=== PATIENT | male | born 1995 | race American Indian/Alaskan Native ===

== ENCOUNTER 2017-07-23 02:17 | Emergency (ER) | payer SELFPAY ==
[2017-07-23] MEDS ORDERED: MOTRIN PO ONE (04:58)
[2017-07-23] MEDS ORDERED: PROVENTIL IH ONE ×2 (04:58→04:59)
[2017-07-23] MEDS ORDERED: MOTRIN ONE (04:59)
--- NOTE | 2017-07-23 05:02 | Emergency Department Report ---
ED ENT HPI - General Chief complaint: Sore Throat Stated complaint: SORE THROAT Time Seen by Provider: 07/23/17 04:23 Source: patient Mode of arrival: Ambulatory Limitations: No Limitations - History of Present Illness Initial comments: 21-year-old male past medical history presents with complaint of nearly 1 week of sore throat worsening with associated cough nonproductive. Positive body aches. Patient speaking in full sentences does not appear toxic awake alert and oriented 3. No trismus no chilling on clinical exam. States he is here with family member with similar symptoms and also states that he may have been exposed to strep throat MD complaint: sore throat Onset/Timin -: days(s) Location: throat Severity: moderate Severity scale (0 -10): 5 Quality: aching Consistency: intermittent Improves with: none Worsens with: swallowing Associated Symptoms: cough, sore throat - Related Data Previous Rx's Medication Instructions Recorded Last Taken Type ALBUTEROL Inhaler [ProAir HFA 2 puff IH QID PRN #1 inhalation 07/23/17 Unknown Rx Inhaler] Benzocaine/Menthol [Cepacol Sore 1 each MM Q4H PRN #1 box 07/23/17 Unknown Rx Throat Lozenge] Cephalexin [Keflex] 500 mg PO Q12HR #14 cap 07/23/17 Unknown Rx Ibuprofen [Motrin] 800 mg PO Q8HR PRN #25 tablet 07/23/17 Unknown Rx Phenylephrine/Dm/Acetaminop/GG 10 ml PO Q4H PRN #1 liquid 07/23/17 Unknown Rx [Mucinex Qdzh-Gds-Ptmcjyfblw Lq] Allergies Allergy/AdvReac Type Severity Reaction Status Date / Time No Known Allergies Allergy Verified 07/23/17 02:28 ED Dental HPI - General Chief complaint: Sore Throat Stated complaint: SORE THROAT Time Seen by Provider: 07/23/17 04:23 Source: patient Mode of arrival: Ambulatory Limitations: No Limitations - Related Data Previous Rx's Medication Instructions Recorded Last Taken Type ALBUTEROL Inhaler [ProAir HFA 2 puff IH QID PRN #1 inhalation 07/23/17 Unknown Rx Inhaler] Benzocaine/Menthol [Cepacol Sore 1 each MM Q4H PRN #1 box 07/23/17 Unknown Rx Throat Lozenge] Cephalexin [Keflex] 500 mg PO Q12HR #14 cap 07/23/17 Unknown Rx Ibuprofen [Motrin] 800 mg PO Q8HR PRN #25 tablet 07/23/17 Unknown Rx Phenylephrine/Dm/Acetaminop/GG 10 ml PO Q4H PRN #1 liquid 07/23/17 Unknown Rx [Mucinex Ilek-Gek-Jhrknjpxfw Lq] Allergies Allergy/AdvReac Type Severity Reaction Status Date / Time No Known Allergies Allergy Verified 07/23/17 02:28 ED Review of Systems ROS: Stated complaint: SORE THROAT Other details as noted in HPI Constitutional: denies: chills, fever Eyes: denies: eye pain, eye discharge, vision change ENT: throat pain. denies: ear pain Respiratory: denies: cough, shortness of breath, wheezing Cardiovascular: denies: chest pain, palpitations Endocrine: no symptoms reported Gastrointestinal: denies: abdominal pain, nausea, diarrhea Genitourinary: denies: urgency, dysuria Musculoskeletal: denies: back pain, joint swelling, arthralgia Skin: denies: rash, lesions Neurological: denies: headache, weakness, paresthesias Psychiatric: denies: anxiety, depression Hematological/Lymphatic: denies: easy bleeding, easy bruising ED Past Medical Hx - Past Medical History Previous Medical History?: No - Surgical History Past Surgical History?: No - Social History Smoking Status: Never Smoker Substance Use Type: None - Medications Home Medications: Home Medications Medication Instructions Recorded Confirmed Last Taken Type ALBUTEROL Inhaler [ProAir HFA 2 puff IH QID PRN #1 inhalation 07/23/17 Unknown Rx Inhaler] Benzocaine/Menthol [Cepacol Sore 1 each MM Q4H PRN #1 box 07/23/17 Unknown Rx Throat Lozenge] Cephalexin [Keflex] 500 mg PO Q12HR #14 cap 07/23/17 Unknown Rx Ibuprofen [Motrin] 800 mg PO Q8HR PRN #25 tablet 07/23/17 Unknown Rx Phenylephrine/Dm/Acetaminop/GG 10 ml PO Q4H PRN #1 liquid 07/23/17 Unknown Rx [Mucinex Wvsb-Lwp-Dcyiqxslrg Lq] ED Physical Exam - General Limitations: No Limitations General appearance: alert, in no apparent distress - Head Head exam: Present: atraumatic, normocephalic - Eye Eye exam: Present: normal appearance, PERRL, EOMI - ENT ENT exam: Present: mucous membranes moist - Expanded ENT Exam Expanded Mouth exam: Present: normal external inspection Throat exam: Positive: tonsillar erythema (right-sided tonsillar pillar erythema ) - Neck Neck exam: Present: normal inspection, full ROM, lymphadenopathy (anterior cervical adenopathy) - Respiratory Respiratory exam: Present: normal lung sounds bilaterally. Absent: respiratory distress - Cardiovascular Cardiovascular Exam: Present: regular rate, normal rhythm. Absent: systolic murmur, diastolic murmur, rubs, gallop - GI/Abdominal GI/Abdominal exam: Present: soft, normal bowel sounds - Rectal Rectal exam: Present: deferred - Extremities Exam Extremities exam: Present: normal inspection - Back Exam Back exam: Present: normal inspection - Neurological Exam Neurological exam: Present: alert, oriented X3, CN II-XII intact, normal gait - Psychiatric Psychiatric exam: Present: normal affect, normal mood - Skin Skin exam: Present: warm, dry, intact, normal color. Absent: rash ED Course Vital Signs 07/23/17 02:28 Temperature 98.2 F Pulse Rate 81 Respiratory 20 Rate Blood Pressure 113/73 O2 Sat by Pulse 96 Oximetry ED Medical Decision Making - Medical Decision Making A/P: Possible pharyngitis 1-patient does have some mild exudates in throat, will treat empirically as patient states she was exposed to strep throat recently 2-Motrin when necessary, throat lozenges when necessary, albuterol when necessary, Mucinex. 3-follow up with primary care doctor Critical care attestation.: If time is entered above; I have spent that time in minutes in the direct care of this critically ill patient, excluding procedure time. ED Disposition Clinical Impression: Sore throat Disposition: DC-01 TO HOME OR SELFCARE Is pt being admited?: No Does the pt Need Aspirin: No Condition: Stable Instructions: Pharyngitis (ED) Prescriptions: ALBUTEROL Inhaler [ProAir HFA Inhaler] 2 puff IH QID PRN #1 inhalation PRN Reason: Shortness Of Breath Benzocaine/Menthol [Cepacol Sore Throat Lozenge] 1 each MM Q4H PRN #1 box PRN Reason: Sore Throat Cephalexin [Keflex] 500 mg PO Q12HR #14 cap Ibuprofen [Motrin] 800 mg PO Q8HR PRN #25 tablet PRN Reason: Sore Throat Phenylephrine/Dm/Acetaminop/GG [Mucinex Zwuz-Loi-Hvwpaadssh Lq] 10 ml PO Q4H PRN #1 liquid PRN Reason: Sore Throat Referrals: [facility] [Provider Group] - 3-5 Days [facility] [Outside] - 3-5 Days Forms: Work/School Release Form(ED) Time of Disposition: 05:29
--- NOTE | 2017-07-23 05:30 | XRay Report ---
FINAL REPORT EXAM: XR CHEST ROUTINE 2V HISTORY: Worsening cough. TECHNIQUE: Frontal and lateral radiographs of the chest were obtained. No prior studies are available for comparison. FINDINGS: The cardiac silhouette and mediastinum are within normal limits. The lungs are clear bilaterally, without focal infiltrate or effusion. There is no pneumothorax. No significant osseous abnormalities are identified. IMPRESSION: No focal infiltrate or effusion.
[2017-07-23 06:01] VITALS: BP 136/72
== END 2017-07-23 06:01 | disposition home or self-care (01) ==
LOC: ED 02:17
DX: J02.9 Acute pharyngitis, unspecified (principal)
CPT/HCPCS: 71020; 87116; 87430; 99283

== ENCOUNTER 2019-05-14 09:20 | Emergency (ER) | payer OTHER ==
[2019-05-14 09:29] VITALS: BP 129/74
--- NOTE | 2019-05-14 12:15 | Emergency Department Report ---
ED ENT HPI - General Chief complaint: Dental/Oral Stated complaint: MOUTH PAIN Time Seen by Provider: 05/14/19 10:39 Source: patient Mode of arrival: Ambulatory Limitations: No Limitations - History of Present Illness Initial comments: This is a 23-year-old male nontoxic, well nourished in appearance, no acute signs of distress presents to the ED with c/o of right lower toothache 3 weeks. Patient denies following up with a dentist. Patient stated that pain radiates from his job to his right side of head. Patient otherwise denies any head trauma. Patient describes toothache as aching level of 8 out of 10. Patient denies any facial swelling. Patient denies any numbness, tingling, fever, chills, headache, stiff neck, abdominal pain, chest pain, shortness of breath. Patient denies any drug allergies or significant past medical history. MD complaint: tooth pain -: week(s) Location: tooth # 1 - pain here Severity: mild Severity scale (0 -10): 8 Quality: aching Consistency: constant Improves with: none Worsens with: none Associated Symptoms: gum swelling, toothache. denies: fever, cough, pain with swallowing, sore throat, tinnitus, hearing loss, discharge from ear, rhinorrhea - Related Data Previous Rx's Medication Instructions Recorded Last Taken Type ALBUTEROL Inhaler (OR & NICU) 2 puff IH QID PRN #1 inhalation 07/23/17 Unknown Rx [ProAir HFA Inhaler] Benzocaine/Menthol [Cepacol Sore 1 each MM Q4H PRN #1 box 07/23/17 Unknown Rx Throat Lozenge] Ibuprofen [Motrin] 800 mg PO Q8HR PRN #25 tablet 07/23/17 Unknown Rx Phenylephrine/Dm/Acetaminop/GG 10 ml PO Q4H PRN #1 liquid 07/23/17 Unknown Rx [Mucinex Ivmi-Gwv-Hhclryqedy Lq] cephALEXin [Keflex] 500 mg PO Q12HR #14 cap 07/23/17 Unknown Rx Acetaminophen/Codeine [Tylenol 1 tab PO Q6H PRN #12 tab 05/14/19 Unknown Rx /Codeine # 3 tab] Chlorhexidine Mouthwash [Peridex] 15 ml MM BID #1 bottle 05/14/19 Unknown Rx Clindamycin [Clindamycin CAP] 300 mg PO Q8H #21 cap 05/14/19 Unknown Rx Allergies Allergy/AdvReac Type Severity Reaction Status Date / Time No Known Allergies Allergy Verified 07/23/17 02:28 ED Dental HPI - General Chief complaint: Dental/Oral Stated complaint: MOUTH PAIN Time Seen by Provider: 05/14/19 10:39 Source: patient Mode of arrival: Ambulatory Limitations: No Limitations - Related Data Previous Rx's Medication Instructions Recorded Last Taken Type ALBUTEROL Inhaler (OR & NICU) 2 puff IH QID PRN #1 inhalation 07/23/17 Unknown Rx [ProAir HFA Inhaler] Benzocaine/Menthol [Cepacol Sore 1 each MM Q4H PRN #1 box 07/23/17 Unknown Rx Throat Lozenge] Ibuprofen [Motrin] 800 mg PO Q8HR PRN #25 tablet 07/23/17 Unknown Rx Phenylephrine/Dm/Acetaminop/GG 10 ml PO Q4H PRN #1 liquid 07/23/17 Unknown Rx [Mucinex Bcgy-Ofd-Ruuibpsptj Lq] cephALEXin [Keflex] 500 mg PO Q12HR #14 cap 07/23/17 Unknown Rx Acetaminophen/Codeine [Tylenol 1 tab PO Q6H PRN #12 tab 05/14/19 Unknown Rx /Codeine # 3 tab] Chlorhexidine Mouthwash [Peridex] 15 ml MM BID #1 bottle 05/14/19 Unknown Rx Clindamycin [Clindamycin CAP] 300 mg PO Q8H #21 cap 05/14/19 Unknown Rx Allergies Allergy/AdvReac Type Severity Reaction Status Date / Time No Known Allergies Allergy Verified 07/23/17 02:28 ED Review of Systems ROS: Stated complaint: MOUTH PAIN Other details as noted in HPI Constitutional: denies: chills, fever Eyes: denies: eye pain, eye discharge, vision change ENT: dental pain. denies: ear pain, throat pain Respiratory: denies: cough, shortness of breath, wheezing Cardiovascular: denies: chest pain, palpitations Endocrine: no symptoms reported Gastrointestinal: denies: abdominal pain, nausea, diarrhea Genitourinary: denies: urgency, dysuria Musculoskeletal: denies: back pain, joint swelling, arthralgia Skin: denies: rash, lesions Neurological: denies: headache, weakness, paresthesias Psychiatric: denies: anxiety, depression Hematological/Lymphatic: denies: easy bleeding, easy bruising ED Past Medical Hx - Past Medical History Previous Medical History?: No - Surgical History Past Surgical History?: No - Social History Smoking Status: Current Every Day Smoker Substance Use Type: Alcohol - Medications Home Medications: Home Medications Medication Instructions Recorded Confirmed Last Taken Type ALBUTEROL Inhaler (OR & NICU) 2 puff IH QID PRN #1 inhalation 07/23/17 Unknown Rx [ProAir HFA Inhaler] Benzocaine/Menthol [Cepacol Sore 1 each MM Q4H PRN #1 box 07/23/17 Unknown Rx Throat Lozenge] Ibuprofen [Motrin] 800 mg PO Q8HR PRN #25 tablet 07/23/17 Unknown Rx Phenylephrine/Dm/Acetaminop/GG 10 ml PO Q4H PRN #1 liquid 07/23/17 Unknown Rx [Mucinex Svay-Ggl-Xpprkvrjef Lq] cephALEXin [Keflex] 500 mg PO Q12HR #14 cap 07/23/17 Unknown Rx Acetaminophen/Codeine [Tylenol 1 tab PO Q6H PRN #12 tab 05/14/19 Unknown Rx /Codeine # 3 tab] Chlorhexidine Mouthwash [Peridex] 15 ml MM BID #1 bottle 05/14/19 Unknown Rx Clindamycin [Clindamycin CAP] 300 mg PO Q8H #21 cap 05/14/19 Unknown Rx ED Physical Exam - General Limitations: No Limitations General appearance: alert, in no apparent distress - Head Head exam: Present: atraumatic, normocephalic - Expanded ENT Exam Expanded Ear exam: Present: normal external inspection Mouth exam: Present: normal external inspection. Absent: drooling, trismus, muffled voice Teeth exam: Present: dental tenderness #, gingival enlargement, other (no abscess or swelling) Throat exam: Positive: normal inspection, other (uvula midline) - Neck Neck exam: Present: normal inspection, full ROM. Absent: tenderness, meningismus, lymphadenopathy - Extremities Exam Extremities exam: Present: normal inspection, full ROM - Back Exam Back exam: Present: normal inspection, full ROM - Neurological Exam Neurological exam: Present: alert, oriented X3 - Psychiatric Psychiatric exam: Present: normal affect, normal mood - Skin Skin exam: Present: warm, dry, intact, normal color. Absent: rash ED Course Vital Signs 05/14/19 09:27 Temperature 97.9 F Pulse Rate 84 Respiratory 16 Rate Blood Pressure 129/74 [Right] O2 Sat by Pulse 97 Oximetry - Reevaluation(s) Reevaluation #1: 05/14/19 12:15 Patient is speaking in full sentences with no signs of distress noted. Critical care attestation.: If time is entered above; I have spent that time in minutes in the direct care of this critically ill patient, excluding procedure time. ED Disposition Clinical Impression: Toothache, Gingivitis Disposition: - TO HOME OR SELFCARE Is pt being admited?: No Does the pt Need Aspirin: No Condition: Stable Instructions: Acetaminophen/Codeine (By mouth) Additional Instructions: Follow-up with a dentist doctor in 3-5 days or if symptoms worsen and continue return to emergency room as soon as possible. Do not operate any machinery while taking Tylenol with codeine as this may cause drowsiness. Prescriptions: Clindamycin [Clindamycin CAP] 300 mg PO Q8H #21 cap Chlorhexidine Mouthwash [Peridex] 15 ml MM BID #1 bottle Acetaminophen/Codeine [Tylenol /Codeine # 3 tab] 1 tab PO Q6H PRN #12 tab PRN Reason: Pain , Severe (7-10) Referrals: GABBIE PAIZ MD [Primary Care Provider] - 3-5 Days PRIMARY MD ESTELITA [Referring] - 3-5 Days VINICIO PAN MD [Staff Physician] - 3-5 Days [facility] [Outside] - 3-5 Days
== END 2019-05-14 12:37 | disposition home or self-care (01) ==
LOC: ED 09:20
DX: K08.89 Other specified disorders of teeth and supporting structures (principal); F17.200 Nicotine dependence, unspecified, uncomplicated; Z79.1 Long term (current) use of non-steroidal anti-inflammatories (NSAID); Z79.899 Other long term (current) drug therapy
CPT/HCPCS: 99282

== ENCOUNTER 2020-08-28 13:08 | Emergency (ER) | payer SELFPAY ==
[2020-08-28 13:44] VITALS: BP 113/68
--- NOTE | 2020-08-28 14:35 | XRay Report ---
RIGHT ELBOW, AP AND LATERAL VIEW INDICATION / CLINICAL INFORMATION: pain, swelling. COMPARISON: None available. FINDINGS: BONES/JOINT(S): No acute fracture or subluxation. No significant degenerative changes. SOFT TISSUES: No significant abnormality. ADDITIONAL FINDINGS: None. Signer Name: Raymond Bains MD Signed: 08/28/2020 2:30 PM Workstation Name: [id number]
--- NOTE | 2020-08-28 16:53 | Emergency Department Report ---
ED Extremity Problem HPI - General Chief complaint: Extremity Problem,Nontraumatic Stated complaint: RT ELBOW PAIN Time Seen by Provider: 08/28/20 16:23 Source: patient Mode of arrival: Ambulatory Limitations: No Limitations - History of Present Illness Initial comments: Patient is a 24-year-old male presents emergency room with complaints of right elbow pain that began a week ago. He denies any known fall or injury. He states that he did sprain his elbow approximately 5 years ago. He denies any numbness or weakness. He states that he feels a knot just above his elbow which hurts when he presses on it. No past medical history. No allergies to medications. - Related Data Previous Rx's Medication Instructions Recorded Last Taken Type Albuterol Mdi (or & Nicu Only) 2 puff IH QID PRN #1 inhalation 07/23/17 Unknown Rx [ProAir HFA Inhaler] Benzocaine/Menthol [Cepacol Sore 1 each MM Q4H PRN #1 box 07/23/17 Unknown Rx Throat Lozenge] Ibuprofen [Motrin] 800 mg PO Q8HR PRN #25 tablet 07/23/17 Unknown Rx Phenylephrine/Dm/Acetaminop/GG 10 ml PO Q4H PRN #1 liquid 07/23/17 Unknown Rx [Mucinex Woxs-Nsa-Qccrryjbop Lq] cephALEXin [Keflex] 500 mg PO Q12HR #14 cap 07/23/17 Unknown Rx Acetaminophen/Codeine [Tylenol 1 tab PO Q6H PRN #12 tab 05/14/19 Unknown Rx /Codeine # 3 tab] Chlorhexidine Mouthwash [Peridex] 15 ml MM BID #1 bottle 05/14/19 Unknown Rx Clindamycin [Clindamycin CAP] 300 mg PO Q8H #21 cap 05/14/19 Unknown Rx Allergies Allergy/AdvReac Type Severity Reaction Status Date / Time No Known Allergies Allergy Verified 07/23/17 02:28 ED Review of Systems ROS: Stated complaint: RT ELBOW PAIN Other details as noted in HPI Comment: All other systems reviewed and negative ED Past Medical Hx - Past Medical History Previous Medical History?: No - Surgical History Past Surgical History?: No - Social History Smoking Status: Current Every Day Smoker Substance Use Type: Alcohol - Medications Home Medications: Home Medications Medication Instructions Recorded Confirmed Last Taken Type Albuterol Mdi (or & Nicu Only) 2 puff IH QID PRN #1 inhalation 07/23/17 Unknown Rx [ProAir HFA Inhaler] Benzocaine/Menthol [Cepacol Sore 1 each MM Q4H PRN #1 box 07/23/17 Unknown Rx Throat Lozenge] Ibuprofen [Motrin] 800 mg PO Q8HR PRN #25 tablet 07/23/17 Unknown Rx Phenylephrine/Dm/Acetaminop/GG 10 ml PO Q4H PRN #1 liquid 07/23/17 Unknown Rx [Mucinex Fmvb-Jdc-Moesewqbfu Lq] cephALEXin [Keflex] 500 mg PO Q12HR #14 cap 07/23/17 Unknown Rx Acetaminophen/Codeine [Tylenol 1 tab PO Q6H PRN #12 tab 05/14/19 Unknown Rx /Codeine # 3 tab] Chlorhexidine Mouthwash [Peridex] 15 ml MM BID #1 bottle 05/14/19 Unknown Rx Clindamycin [Clindamycin CAP] 300 mg PO Q8H #21 cap 05/14/19 Unknown Rx ED Physical Exam - General Limitations: No Limitations General appearance: alert, in no apparent distress - Head Head exam: Present: atraumatic, normocephalic - Eye Eye exam: Present: normal appearance - ENT ENT exam: Present: mucous membranes moist - Respiratory Respiratory exam: Absent: respiratory distress, accessory muscle use - Extremities Exam Extremities exam: Present: other (small nodule present just superior to the right medial epidcondyle, no skin changes, no erythema, no fluctuance, does not feel like fluid, no bony ttp of the RUE, neurovascularly intact) - Neurological Exam Neurological exam: Present: alert, oriented X3 - Psychiatric Psychiatric exam: Present: normal affect, normal mood - Skin Skin exam: Present: warm, dry ED Course Vital Signs 08/28/20 13:41 Temperature 98.3 F Pulse Rate 64 Respiratory 18 Rate Blood Pressure 113/68 O2 Sat by Pulse 98 Oximetry ED Medical Decision Making - Radiology Data Radiology results: report reviewed RIGHT ELBOW, AP AND LATERAL VIEW INDICATION / CLINICAL INFORMATION: pain, swelling. COMPARISON: None available. FINDINGS: BONES/JOINT(S): No acute fracture or subluxation. No significant degenerative changes. SOFT TISSUES: No significant abnormality. ADDITIONAL FINDINGS: None. Signer Name: Raymond Bains MD Signed: 08/28/2020 2:30 PM Workstation Name: [email or web address] Transcribed By: ZEENAT Dictated By: Raymond Bains MD Electronically Authenticated By: Raymond Bains MD Signed Date/Time: 08/28/201429 DD/ 29 TD/TT: - Medical Decision Making Patient is a 24-year-old male presents emergency room with complaints of right elbow pain that began a week ago. He denies any known fall or injury. He states that he did sprain his elbow approximately 5 years ago. He denies any numbness or weakness. He states that he feels a knot just above his elbow which hurts when he presses on it. No past medical history. No allergies to medications. vitals are normal. on exam: small nodule present just superior to the right medial epidcondyle, no skin changes, no erythema, no fluctuance, does not feel like fluid, no bony ttp of the RUE, neurovascularly intact. No signs of effusion, no signs of DVT, patient has strong pulses, no signs of infection, no signs of septic joint, no signs of gout. X-ray right elbow ordered prior to my examination and shows FINDINGS: BONES/JOINT(S): No acute fracture or subluxation. No significant degenerative changes. SOFT TISSUES: No significant abnormality. ADDITIONAL FINDINGS: None. Could possibly be related to fibroma or lipoma of the elbow. Patient will be referred to orthopedic doctor and primary care for further evaluation. advised pt May alternate Tylenol or ibuprofen as needed for discomfort. May ice 15 minutes at a time, soak in Epson salt, rest. May wear Farhat bandage but do not wear too tightly and do not wear at night. Follow-up with orthopedic doctor for further evaluation. Return to emergency room for any new or worsening symptoms. Critical care attestation.: If time is entered above; I have spent that time in minutes in the direct care of this critically ill patient, excluding procedure time. ED Disposition Clinical Impression: Nodule in muscle Elbow pain Qualifiers: Laterality: right Qualified Code(s): M25.521 - Pain in right elbow Disposition: DC-01 TO HOME OR SELFCARE Is pt being admited?: No Does the pt Need Aspirin: No Condition: Stable Additional Instructions: May alternate Tylenol or ibuprofen as needed for discomfort. May ice 15 minutes at a time, soak in Epson salt, rest. May wear Farhat bandage but do not wear too tightly and do not wear at night. Follow-up with orthopedic doctor for further evaluation. Return to emergency room for any new or worsening symptoms. Referrals: MAG STONER MD [Staff Physician] - 2-3 Days [facility] [Provider Group] - 2-3 Days PRIMARY CARE, [Primary Care Provider] - 2-3 Days Time of Disposition: 16:52 Print Language: AR[place]
== END 2020-08-28 17:20 | disposition home or self-care (01) ==
LOC: ED 13:08
DX: M25.521 Pain in right elbow (principal)
CPT/HCPCS: 99282